=== PATIENT | male | born 1970 | race Caucasian/White ===

== ENCOUNTER → 2020-11-06 | Day surgery (SDC) | payer BC | END | disposition home or self-care (01) | LOC: MSO 11:07 | DX: H25.11 Age-related nuclear cataract, right eye (principal); I10 Essential (primary) hypertension; E11.9 Type 2 diabetes mellitus without complications; Z79.4 Long term (current) use of insulin; Z79.899 Other long term (current) drug therapy | CPT/HCPCS: 00142; J0171; J2250; J2370; V2632 ==